=== PATIENT | male | born 1970 | race Two or more races ===

== ENCOUNTER 2024-09-21 13:05 | Emergency (ER) | payer MEDICAID ==
[~2024-09-21] VITALS: Ht 182.9 cm; Wt 93.7 kg
[2024-09-21 13:14] VITALS: BP 134/85; PULSE 65; RESP 18; TEMP 98.4; O2SAT 100
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
== END 2024-09-21 13:34 ==
LOC: ER 13:05
DX: Z02.89 Encounter for other administrative examinations (principal)
CPT/HCPCS: 99283